=== PATIENT | female | born 1935 | race Caucasian/White ===

== ENCOUNTER 2017-11-08 11:40 | Emergency (ER) | payer MEDICARE ==
[2017-11-08] MEDS ORDERED: Diph,Pert(Acell),Tet Vac 0.5 ML SYR IM ONE (11:46)
--- NOTE | 2017-11-08 11:49 | Emergency Department Record ---
History of Present Illness - General Chief complaint: Extremity Problem Stated complaint: L THUMB INJURY Time Seen by Provider: 11/08/17 11:44 Source: Patient Mode of Arrival: Ambulatory Limitations: No limitations - History of Present Illness Initial comments: The patient fell getting out of the car and injured her L thumb by hitting it on a rock. She did sustain a laceration over the dorsal L thumb between the MCP and DIP joint. Her Td is not UTD. MD Complaint: Extremity pain Onset/Timin -: Hour(s) - Related Data Home Medications Medication Instructions Recorded Confirmed Last Taken Amlodipine Besylate 5 mg PO DAILY 11/08/17 11/08/17 1 Day Ago ~11/07/17 Aspirin [Adult Aspirin] 81 mg PO DAILY 11/08/17 11/08/17 1 Day Ago ~11/07/17 Ca/D3/Mag Ox/Zinc/Structural Steel Engineer/Jerry/Bor 1 each PO DAILY 11/08/17 11/08/17 1 Day Ago [Calcium 600+D3 Plus Caplet] ~11/07/17 Carvedilol 6.25 mg PO BID 11/08/17 11/08/17 1 Day Ago ~11/07/17 Cinnamon Bark [Cinnamon] 500 mg PO BID 11/08/17 11/08/17 1 Day Ago ~11/07/17 Clopidogrel Bisulfate [Clopidogrel] 75 mg PO DAILY 11/08/17 11/08/17 1 Day Ago ~11/07/17 Garlic 1,500 mg PO DAILY 11/08/17 11/08/17 1 Day Ago ~11/07/17 Ibuprofen 200 mg PO TID PRN 11/08/17 11/08/17 1 Day Ago ~11/07/17 Liraglutide [Victoza 3-Richi] 0.6 mg SQ QPM 11/08/17 11/08/17 1 Day Ago ~11/07/17 Lorazepam [Ativan] 0.5 mg PO TID PRN 11/08/17 11/08/17 1 Day Ago ~11/07/17 Nitroglycerin [Nitrostat] 0.4 mg SL ASDIR PRN 11/08/17 11/08/17 1 Day Ago ~11/07/17 Ramipril 5 mg PO DAILY 11/08/17 11/08/17 1 Day Ago ~11/07/17 Sertraline HCl [Zoloft] 100 mg PO DAILY 11/08/17 11/08/17 1 Day Ago ~11/07/17 Simvastatin 40 mg PO DAILY 11/08/17 11/08/17 1 Day Ago ~11/07/17 Previous Rx's Medication Instructions Recorded Cephalexin [Keflex] 500 mg PO TID #21 cap 11/08/17 Allergies Allergy/AdvReac Type Severity Reaction Status Date / Time acetaminophen Allergy NAUSEA AND Verified 11/08/17 11:57 [From Darvocet-N] VOMITING atorvastatin [From Lipitor] Allergy MUSCLE PAIN Verified 11/08/17 11:57 meperidine [From Demerol] Allergy NAUSEA Verified 11/08/17 11:57 naproxen [From Naprosyn] Allergy HEADACHE Verified 11/08/17 11:57 propoxyphene Allergy NAUSEA AND Verified 11/08/17 11:57 [From Darvocet-N] VOMITING Review of Systems Constitutional: Denies: Chills, Fever Physical Exam - General General Appearance: Alert, Oriented x3, Cooperative, No acute distress - Head Head exam: Atraumatic, Normocephalic - Eye Eye exam: Normal appearance, PERRL - Extremities Extremities exam: Normal capillary refill. negative: Normal inspection (There is an oblique lac 2 cm to the dorsal L thumb ), Full ROM (The patient is not able to extend the L thumb at the DIP joint. There is no significant bony L thumb tenderness.), Joint swelling Image of Hand: 1 - Oblique lac. Course - Reevaluation(s) Reevaluation #1: Procedure note: The L thumb was anesth. with 2 cc's Lido 1%. The wound was prepped with betadine and lavaged with sterile saline. No bone or tendon was visualized in the wound and the lac was closed with 6 4.0 nylon sutures. There were no complications. 11/08/17 13:09 Reevaluation #2: I did discuss with the patient and brother that the standard of care is to have the thumb evaluated by a hand surgeon due to the injury technically being an open fx even thought the fx'd areas do not communicate with the laceration. Because of that I did recommend transfer to a larger hospital for Hand Surgery Consultation. The patient is reluctant to do that due to the fact she lives up [place] and is just visiting and will be returning home tonight. 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 The patient understands and accepts the risks and would like to see a hand doctor [place]. 11/08/17 13:31 Medical Decision Making - Data Complexity MDM Data: X-Ray Ordered and/or Reviewed - Radiology Data Radiology results: Report reviewed (L Thumb: There is a comminuted fx at the base of the L distal phalynx with a chip fx at the base of the proximal phalynx. ) Disposition Disposition: Discharge Clinical Impression: Fracture of thumb, left, open Qualifiers: Encounter type: initial encounter Phalanx: distal Fracture alignment: displaced Qualified Code(s): S62.522B - Displaced fracture of distal phalanx of left thumb, initial encounter for open fracture Disposition: Against Medical Advice Condition: (2) Stable Instructions: Thumb Fracture (ED) Additional Instructions: Please elevate the hand when possible and take your Keflex as directed. Please use TYlenol for pain. Please see a Hand Specialist on Friday and please contact your doctor for help with the referral. Have the sutures removed in 10 days. Prescriptions: Cephalexin [Keflex] 500 mg PO TID #21 cap Forms: Patient Portal Access Time of Disposition: 13:38 Quality - Quality Measures Quality Measures: N/A - Blood Pressure Screening View Details: Yes Does Patient Have Any of the Following: No Blood Pressure Classification: Pre-Hypertensive BP Reading Systolic Measurement: 168 Diastolic Measurement: 86 Screening for High Blood Pressure: < Pre-Hypertensive BP, F/U Documented > [ [id number]] Pre-Hypertensive Follow-up Interventions: Referral to alternative/primary care provider.
[2017-11-08] MEDS ORDERED: LIDOCAINE 1% MPF 100MG/10ML STERILE-PAK AMPULE IV ONE (12:10)
[2017-11-08] MEDS ORDERED: CEPHALEXIN 500 MG CAPSULE PO STA (13:31)
--- NOTE | 2017-11-11 08:24 | RADIOLOGY REPORT ---
EXAM: LEFT THUMB HISTORY: TRAUMA, LACERATED LEFT THUMB. TECHNIQUE: Three views of the left thumb were obtained. Comparison: None. Encounter: Initial. FINDINGS: There is a comminuted fracture of the base of the left thumb which appears to extend into the IP joint. There is displacement of a fracture fragment posteriorly by approximately 4 mm. Given the history of a laceration this may represent an open fracture and clinical correlation is suggested. No actual dislocation at the IP joint evident. Some soft tissue swelling is present. There also appears to be a fracture of the corner of the base of the proximal phalanx of the left thumb as seen on the AP and correlation with point tenderness at this site suggested. This probably also extends into the first MCP joint. 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 IMPRESSION: 1. COMMINUTED INTRAARTICULAR FRACTURE OF THE BASE OF THE DISTAL PHALANX OF THE THUMB WITH OVERLYING SOFT TISSUE SWELLING. 2. THERE IS PROBABLY AN UNDISPLACED FRACTURE OF THE BASE OF THE PROXIMAL PHALANX OF THE LEFT THUMB EXTENDING INTO THE FIRST MCP JOINT WELL. 3. ADVANCED DEGENERATIVE ARTHRITIS FIRST CMC ARTICULATION. JOB NUMBER: [id number] [facility]
== END 2017-11-08 13:49 | disposition left against medical advice (07) ==
LOC: ER 11:40
DX: S62.522B Displaced fracture of distal phalanx of left thumb, initial encounter for open fracture (principal); W17.89XA Other fall from one level to another, initial encounter
CPT/HCPCS: 12001; 90715; 96372; 99283; 99284